=== PATIENT | male | born 1965 | race Caucasian/White ===

== ENCOUNTER → 2025-01-31 | Emergency (ER) | payer BC ==
[~2025-01-31] VITALS: Ht 170.2 cm; Wt 68.0 kg
[~2025-01-31] MED LIST: ALBU18HF2 IH; ALBUTEROL FS 2.5 MG/3 ML VIAL.NEB ONE; AZIT250T PO; FLUT12AE3 INH; FLUT16SP BNOSTRILS; IPRATROPIUM NEB FS 0.5 MG/2.5 ML AMPUL.NEB ONE; MULT-447 PO; PRED20TA PO; PRED50TA PO; TEST200V3 IM; TIOT4MIS2 INH; UBID100C13 PO; methylPREDNISolone SOD SUCC 125 MG/2ML VIAL ONE
[2025-01-31 17:51] VITALS: TEMP 98.3
[2025-01-31 18:17] VITALS: O2SAT 97
[2025-01-31 18:27] LABS: BASOPHILS % (AUTO) 0.2 % (0.0-2.0); EOSINOPHILS # (AUTO) 0.5 K/uL (0.0-0.7); EOSINOPHILS % (AUTO) 4.1 % (0.0-6.0); HEMATOCRIT 55 % (39-51); HEMOGLOBIN 18.5 g/dL (13.5-17.5); LYMPHOCYTES # (AUTO) 1.6 K/uL (0.8-4.8); LYMPHOCYTES % (AUTO) 13.7 % (20.0-44.0); MEAN CORPUSCULAR HEMOGLOBIN 30 PG (26.0-33.0); MEAN CORPUSCULAR HGB CONC 34 g/dl (31.0-36.0); MEAN CORPUSCULAR VOLUME 89 fL (80-96); NEUTROPHILS # (AUTO) 8.5 K/uL (1.8-8.9); PLATELET COUNT (AUTO) 277 K/uL (150-450); RED BLOOD CELL COUNT(AUTO) 6.13 MIL/uL (4.5-6.0); WHITE BLOOD COUNT (AUTO) 11.6 K/uL (4.3-11.0)
[2025-01-31] MEDS: IV NS 0.9% 1,000 ML BAG IV ONE (18:30)
[2025-01-31] MEDS: methylPREDNISolone SOD SUCC 125 MG/2ML VIAL IV ONE (18:31)
[2025-01-31] MEDS: ALBUTEROL FS 2.5 MG/3 ML VIAL.NEB CONTNEB ONE (18:34)
[2025-01-31] MEDS: IPRATROPIUM NEB FS 0.5 MG/2.5 ML AMPUL.NEB NEB ONE (18:34)
[2025-01-31 18:44] LABS: ALANINE AMINOTRANSFERASE 66 U/L (12-78); ALBUMIN 4.4 g/dL (3.4-5.0); ALKALINE PHOSPHATASE 123 U/L (46-116); ASPARTATE AMINOTRANSFERASE 31 U/L (15-37); BILIRUBIN,DIRECT 0.2 mg/dL (0.0-0.2); BILIRUBIN,TOTAL 0.8 mg/dL (0.2-1.0); CALCIUM, SERUM 9.3 mg/dL (8.5-10.1); CARBON DIOXIDE 29 mmol/L (21-32); CHLORIDE 102 mmol/L (98-107); CREATININE 1.2 mg/dL (0.6-1.3); GLUCOSE 110 mg/dL (74-106); POTASSIUM 3.9 mmol/L (3.5-5.1); SODIUM SERUM 136 mmol/L (136-145); TOTAL PROTEIN, SERUM 7.9 g/dL (6.4-8.2); UREA NITROGEN, BLOOD 19 mg/dL (7-18)
[2025-01-31 19:11] VITALS: BP 137/87; O2SAT 98
[2025-01-31 19:29] LABS: EOSINOPHILS % (MANUAL) 1 % (0-4); LYMPHOCYTES % (MANUAL) 10 % (16-48); MONOCYTES % (MANUAL) 4 % (0-11.0); NEUTROPHILS % (MANUAL) 85 (42-76); PLATELET ESTIMATE ADEQUATE
== END ==
LOC: ER 18:07
DX: J45.901 Unspecified asthma with (acute) exacerbation (principal); Z79.51 Long term (current) use of inhaled steroids; Z79.52 Long term (current) use of systemic steroids; Z20.822 Contact with and (suspected) exposure to COVID-19
CPT/HCPCS: 99285; 96374; 71045; 96361; 87426; 93005; 84145; 85025; 80048; 87040 ×2; 87804; 83605; 80076; 85378; 87420; 84484; 94644; 85007; J2919; J7030